=== PATIENT | female | born 1990 | race African-American/Black ===

== ENCOUNTER 2017-01-12 10:20 | Emergency (ER) | payer OTHER ==
[~2017-01-12] VITALS: Ht 147.3 cm; Wt 45.4 kg
[2017-01-12 11:05] LABS: APPEARANCE,URINE SLIGHTLY CLOUDY; KETONES,URINE NEGATIVE (NEGATIVE); LEUKOCYTE ESTERASE ,URINE 1+ (NEGATIVE); NITRITE,URINE NEGATIVE (NEGATIVE); PH,URINE 6 (4.5-8.0); PROTEIN,URINE 1+ (NEGATIVE); UROBILINOGEN,URINE NORMAL MG/DL (0.0-1.0)
[2017-01-12 11:17] LABS: BACTERIA,URINE FEW /HPF; RBC,URINE 0-2 /HPF (0 - 2); SQUAMOUS EPITHELIAL CELL,UR MODERATE /LPF (NONE/OCC)
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
[2017-01-12 19:00] VITALS: BP 112/64
== END 2017-01-12 11:42 | disposition home or self-care (01) ==
LOC: EDBD 10:20 → EMR 10:58
DX: Z04.8 Encounter for examination and observation for other specified reasons (principal)
CPT/HCPCS: 81003; 81025; 99283